=== PATIENT | female | born 1985 | race African-American/Black ===

== ENCOUNTER 2018-04-06 15:59 | Emergency (ER) | payer SELFPAY ==
[2018-04-06 16:06] VITALS: BP 144/79
[2018-04-06] MEDS ORDERED: DIPHENHYDRAMINE HCL 50 MG CAPSULE PO ONE (16:44)
[2018-04-06] MEDS ORDERED: FAMOTIDINE 20 MG TABLET PO ONE (16:44)
[2018-04-06] MEDS ORDERED: PREDNISONE 20 MG TABLET PO ONE (16:44)
--- NOTE | 2018-04-06 16:55 | ER Document Report ---
ED Allergic Reaction - General Chief Complaint: Allergic Reaction Stated Complaint: POSSIBLE ALLERIC REACTION Time Seen by Provider: 04/06/18 16:32 Mode of Arrival: Ambulatory Information source: Patient Notes: 32-year-old female presents to ED for complaint of allergic reaction to something on the seafood buffet she ate yesterday. She states she took some Benadryl last night and this morning but she still having some hives to the face. Patient alert and oriented respirations regular and unlabored speaking in full sentences with mild hives to the face no acute distress. TRAVEL OUTSIDE OF THE [place] IN LAST 30 DAYS: No - HPI Onset: Yesterday Onset/Duration: Persistent Quality of pain: Other - Swelling and hives to face Severity: Mild Pain Level: 2 Identified cause: Yes - She states she ate at the [employer] bar yesterday and she knows she is allergic to cramps Food exposure: Shellfish Skin rash / itching: Facial, "Redness", "Hives" Swelling: Face Similar symptoms previously: Yes Recently seen / treated by doctor: No - Related Data Allergies/Adverse Reactions: tuberculin,PPD,multi-puncture Allergy (Verified 04/06/18 16:06) Past Medical History - General Information source: Patient - Social History Smoking Status: Never Smoker Frequency of alcohol use: Heavy Drug Abuse: None Occupation: [employer] Lives with: Spouse/Significant other Family History: Reviewed & Not Pertinent Patient has suicidal ideation: No Patient has homicidal ideation: No Pulmonary Medical History: Reports: Hx Bronchitis GI Medical History: Reports: Hx Gastroesophageal Reflux Disease Psychiatric Medical History: Reports: Hx Anxiety, Hx Depression Past Surgical History: Reports: Hx Adenoidectomy, Hx Oral Surgery - [place] teeth , Hx Tonsillectomy Review of Systems - Review of Systems Skin: Other - Swelling and hives to the face no swelling to the lips tongue or oral mucosa. No airway obstruction Physical Exam - Vital signs Vitals: Temp Pulse Resp BP Pulse Ox 99.1 F 83 16 144/79 H 96 04/06/18 16:05 04/06/18 16:05 04/06/18 16:05 04/06/18 16:05 04/06/18 16:05 Interpretation: Normal - General General appearance: Appears well, Alert - HEENT Head: Normocephalic, Atraumatic, Other - Redness and hives to the face Eyes: Normal Pupils: PERRL Ears: Normal External canal: Normal Tympanic membrane: Normal Sinus: Normal Nasal: Normal Mouth/Lips: Normal. No: Angioedema Mucous membranes: Normal, Other - No swelling to the lips or tongue Pharynx: Normal. No: Potential airway comprom. Neck: Normal - Respiratory Respiratory status: No respiratory distress Chest status: Nontender Breath sounds: Normal Chest palpation: Normal - Cardiovascular Rhythm: Regular Heart sounds: Normal auscultation Murmur: No - Abdominal Inspection: Normal Distension: No distension Bowel sounds: Normal Tenderness: Nontender Organomegaly: No organomegaly - Back Back: Normal, Nontender - Extremities General upper extremity: Normal inspection, Nontender, Normal color, Normal ROM , Normal temperature General lower extremity: Normal inspection, Nontender, Normal color, Normal ROM , Normal temperature, Normal weight bearing. No: Porsche's sign - Neurological Neuro grossly intact: Yes Cognition: Normal Orientation: AAOx4 Anuja Coma Scale Eye Opening: Spontaneous Odell Coma Scale Verbal: Oriented Odell Coma Scale Motor: Obeys Commands Anuja Coma Scale Total: 15 Speech: Normal Motor strength normal: LUE, RUE, LLE, RLE Sensory: Normal - Psychological Associated symptoms: Normal affect, Normal mood - Skin Skin Temperature: Warm Skin Moisture: Dry Skin Color: Normal Course - Re-evaluation Re-evalutation: 04/06/18 22:36 Patient treated with Pepcid Benadryl and prednisone and instructed to follow-up with her primary doctor and get allergy testing to find what she is allergic to besides the milligrams. She states she ate a seafood buffet yesterday. Patient instructed on the importance of not eating seafood buffet days when she is allergic to crabs. - Vital Signs Vital signs: Temp Pulse Resp BP Pulse Ox 99.1 F 83 16 144/79 H 96 04/06/18 16:05 04/06/18 16:05 04/06/18 16:05 04/06/18 16:05 04/06/18 16:05 Discharge - Discharge Clinical Impression: Allergic reaction Qualifiers: Encounter type: initial encounter Qualified Code(s): T78.40XA - Allergy, unspecified, initial encounter Condition: Stable Disposition: HOME, SELF-CARE Instructions: Family Physicians / Practices Additional Instructions: ACUTE ALLERGIC REACTION: Your symptoms are due to an allergic reaction. Allergy can cause hives, swelling of the hands, feet, and face, hoarseness, and difficulty swallowing or breathing. It may be due to exposure to medication, animal dander, foods, infection, or insect bites. Medication is a common cause, even when prior use of this same medication caused no problems. Acute treatment may include adrenalin and antihistamines. Usually, the specific allergic agent can't be identified unless repeated episodes occur. Home treatment includes the following: (1) Stop any suspicious medications. This will be discussed with you. (2) Oral antihistamines for the next four to five days. Example, diphenhydramine (Benadryl) every four hours. (3) You may also use cimetidine (Tagamet), ranitidine (Zantac), or famotidine ( Pepcid) every four hours if diphenhydramine is not controlling itching and hives. (4) Avoid aspirin until the hives completely disappear. (5) Avoid hot baths or showers until the hives are completely gone. Call the doctor if faintness, difficulty swallowing, tightness in the chest , or wheezing occurs. STEROID MEDICATION: You have been given a medicine of the cortisone/steroid class. This medication is used to control inflammation or allergy. It is usually only given for a short period of time, until the acute process subsides. There are usually no side effects from short-term use of cortisone-like medications. Some persons feel an increased sense of well-being and are not sleepy at bedtime. Long-term use of cortisone medications is best avoided, unless required for a severe condition. If your condition does not remit, or relapses after the course of corticosteroid medication, you should consult your physician. ACID-SUPPRESSING MEDICATION: You have a prescription for medicine which reduces the stomach's secretion of acid. Examples include Zantac, Tagament, and Pepcid. These drugs are often used to allow healing of ulcers or esophagitis. They may be needed to prevent recurrence of ulcers in some patients, or to prevent damage from acid reflux in the esophagus. Take all medication as prescribed, even after the pain is gone. Regular antacids may be added as needed if you have symptoms while taking this medicine. These medications sometimes are prescribed for allergic reactions because they have anti-histaminic effects and relieve the rash and itching of the reaction. There are usually no side effects from this medication. But, in rare cases and particularly in the elderly, serious problems can occur. Contact your doctor if there is fever, rash, hallucinations, confusion, or unusual bruising. Contact your doctor at once if you develop lightheadedness, black or bloody stool, or bloody vomitus. ANTIHISTAMINES: An antihistamine has been given and/or prescribed to control your symptoms. Antihistamines are used for many reasons, including itching, watering eyes, runny nose, allergic swelling, hives, and insect stings. Antihistamines may cause drowsiness, especially with the first dose. Do not operate machinery or drive while under the effects of the medication. Other common side effects include dry mouth and eyes. In older persons, antihistamines can occasionally cause urinary retention, constipation, and trouble focusing the eyes. Do not combine the medication with alcohol, or with any other medication without talking to your doctor. USE OF DIPHENHYDRAMINE: The use of diphenhydramine (Benadryl) has been recommended to control allergic symptoms. The 25 mg strength is available over- the-counter, as well as the elixir. This antihistamine is used for many symptoms. It's useful for itching, watering eyes and nose, allergic swelling, hives, and insect stings. The medication can be repeated four times daily. Age Elixir (12.5 mg/tsp) 25 mg pill 2-3 yr 1/2 tsp 4-8 yr 1 tsp 9-14 yr 2 tsp one tab adult 1-2 tabs Antihistamines may cause drowsiness, especially with the first dose. Do not operate machinery or drive while under the effects of the medication. Do not combine the medication with alcohol, or with any other medication without talking to your doctor. FOLLOW-UP CARE: If you have been referred to a physician for follow-up care, call the physician s office for an appointment as you were instructed or within the next two days. If you experience worsening or a significant change in your symptoms, notify the physician immediately or return to the Emergency Department at any time for re-evaluation. Prescriptions: Famotidine [Pepcid 20 mg Tablet] 20 mg PO BID #12 tablet Prednisone [Deltasone 20 mg Tablet] 3 tab PO DAILY 5 Days tablet Forms: Elevated Blood Pressure
== END 2018-04-06 17:05 | disposition home or self-care (01) ==
LOC: ER 15:59
DX: T78.40XA Allergy, unspecified, initial encounter (principal); L50.9 Urticaria, unspecified
CPT/HCPCS: 99283; J7512

== ENCOUNTER 2018-09-28 00:22 | Emergency (ER) | payer SELFPAY ==
[2018-09-28] MEDS ORDERED: SUCRALFATE 1 GM TABLET PO ONE (01:12)
[2018-09-28] MEDS ORDERED: HYDROCODONE/ACETAMINOPHEN 5-325 MG TABLET PO ONE (01:12)
[2018-09-28] MEDS ORDERED: PROMETHAZINE HCL 25 MG TABLET PO ONE (01:12)
[2018-09-28] MEDS ORDERED: FAMOTIDINE 20 MG TABLET PO ONE ×2 (01:12→04:00)
--- NOTE | 2018-09-28 01:14 | ER Document Report ---
ED GI/ - General Chief Complaint: Upper Abdominal Pain Stated Complaint: ABDOMINAL PAIN Time Seen by Provider: 09/28/18 01:05 Notes: Patient is a 32-year-old female that comes to the emergency department for chief complaint of left upper quadrant pain (she points). She states that symptoms started about 2-1/2 days ago when she took a BC powder for lower abdominal cramping. She has a history of fibroids and intermittently needs medication for the cramping. She denies vomiting blood but she states she did throw up yesterday. She denies black stools, she denies any other locations of pain. She has been able to eat but the pain is not resolved. She denies fever. Remaining medical history includes anemia secondary to heavy vaginal bleeding, she takes no daily medications, she denies any surgeries, she denies alcohol, smoking, recreational drugs. TRAVEL OUTSIDE OF THE [place] IN LAST 30 DAYS: No - Related Data Allergies/Adverse Reactions: tuberculin,PPD,multi-puncture Allergy (Verified 04/06/18 16:06) Past Medical History - General Information source: Patient - Social History Smoking Status: Never Smoker Frequency of alcohol use: None Drug Abuse: None Lives with: Family Family History: Reviewed & Not Pertinent Pulmonary Medical History: Reports: Hx Bronchitis Renal/ Medical History: Reports: Other - Uterine fibroids. Denies: Hx Peritoneal Dialysis GI Medical History: Reports: Hx Gastroesophageal Reflux Disease Psychiatric Medical History: Reports: Hx Anxiety, Hx Depression Past Surgical History: Reports: Hx Adenoidectomy, Hx Oral Surgery - [place] teeth , Hx Tonsillectomy Review of Systems - Review of Systems Constitutional: No symptoms reported EENT: No symptoms reported Cardiovascular: No symptoms reported Respiratory: No symptoms reported Gastrointestinal: See HPI Genitourinary: No symptoms reported Female Genitourinary: See HPI Musculoskeletal: No symptoms reported Skin: No symptoms reported Hematologic/Lymphatic: No symptoms reported Neurological/Psychological: No symptoms reported Physical Exam - Vital signs Vitals: Temp Pulse Resp BP Pulse Ox 98.4 F 88 15 147/78 H 98 09/28/18 00:38 09/28/18 00:38 09/28/18 00:38 09/28/18 00:38 09/28/18 00:38 - Notes Notes: GENERAL: Alert, interacts well. No acute distress. HEAD: Normocephalic, atraumatic. EYES: Pupils equal, round, and reactive to light. Extraocular movements intact. ENT: Oral mucosa moist, tongue midline. Oropharynx unremarkable. Airway patent. Nares patent, no nasal septal hematoma, TM's intact. NECK: Full range of motion. Supple. Trachea midline. LUNGS: Clear to auscultation bilaterally, no wheezes, rales, or rhonchi. No respiratory distress. HEART: Regular rate and rhythm. No murmur ABDOMEN: Tender in the left upper quadrant and minimally in the epigastric area , remaining abdomen is benign. Non-distended. Bowel sounds present in all 4 quadrants. GENITOURINARY: Deferred EXTREMITIES: Moves all 4 extremities spontaneously. No edema, normal radial and dorsalis pedis pulses bilaterally. No cyanosis. BACK: no cervical, thoracic, lumbar midline tenderness. No saddle anesthesia, normal distal neurovascular exam. NEUROLOGICAL: Alert and oriented x3. Normal speech. [cranial nerves II through XII grossly intact]. PSYCH: Normal affect, normal mood. SKIN: Warm, dry, normal turgor. No rashes or lesions noted. Course - Re-evaluation Re-evalutation: On presentation patient is well-appearing but she does have left upper quadrant pain. Her history of present illness is very suggestive of gastritis component. CBC does not show leukocytosis but does show microcytic anemia along with patient's persistent bleeding fibroids. Chemistry unremarkable, lipase unremarkable, hCG is negative. Patient has no lower abdominal pain, no fever. She did vomit once after arrival. There was no hematemesis. Patient got up and went to the bathroom, she demonstrated to me that she is bleeding slightly but she does not have heavy bleeding, dizziness, dyspnea on exertion, she has not passed out. Patient given p.o. medications for gastritis, initially patient still had symptoms but then these resolved. She is tolerating p.o. without difficulty. Patient was transfused 1 unit of packed red blood cells. Because patient states she has several weeks before her follow-up with [facility], she has persistent bleeding fibroids, and she already has anemia requiring transfusion, I did speak with Dr. Obrien ([facility] on-call). She recommends patient have close follow-up on Saturday or Saturday in the office, she states she is referring this to the daytime [facility] to make sure this is confirmed. Patient informed that she should call on Saturday to set this up and confirmed. Patient states satisfaction and agreement with this plan. - Vital Signs Vital signs: Temp Pulse Resp BP Pulse Ox 97.5 F 82 16 116/86 H 100 09/28/18 05:46 09/28/18 05:46 09/28/18 06:32 09/28/18 06:32 09/28/18 06:32 - Laboratory Result Diagrams: 09/28/18 01:25 09/28/18 01:25 Laboratory results interpreted by me: 09/28/18 09/28/18 01:25 02:27 RBC 3.01 L Hgb 7.5 L Hct 23.4 L MCV 78 L MCH 24.9 L MCHC 31.9 L RDW 16.3 H Plt Count 540 H Crossmatch See Detail Discharge - Discharge Clinical Impression: Anemia requiring transfusions, Upper abdominal pain, Dysfunctional uterine bleeding Condition: Stable Disposition: HOME, SELF-CARE Additional Instructions: You have been treated for the anemia from the bleeding with the fibroids. I spoke with Dr. Obrien, [facility], recommendation is to follow-up on either Saturday or Saturday in the office, please call the listed number on Saturday to establish this close follow-up. Your evaluation also indicates inflammation of the upper gastrointestinal tract , take Zofran for nausea, Carafate and famotidine to help fix the symptoms, avoid NSAIDs, alcohol, smoking, caffeine, or spicy foods. Start with clear fluids and progress to bland diet. Return to normal as tolerated. Return immediately if you worsen including passing out, vomiting blood, black stools, severe abdominal pain, or any other concerning or worsening symptoms. Prescriptions: Famotidine [Pepcid 20 mg Tablet] 20 mg PO BID #14 tablet Ondansetron [Zofran Odt 4 mg Tablet] 1 - 2 tab PO Q4H PRN #15 tab.rapdis PRN Reason: For Nausea/Vomiting Sucralfate [Carafate 1 gm Tablet] 1 gm PO QID #20 tablet Referrals: [facility] [Provider Group] - 09/29/18
[2018-09-28 01:43] LABS: ABSOLUTE EOSINOPHILS # (AUTO) 0.1 10^3/uL (0.0-0.6); ABSOLUTE LYMPHOCYTES (AUTO) 3.4 10^3/uL (0.5-4.7); ABSOLUTE MONOCYTES (AUTO) 0.7 10^3/uL (0.1-1.4); BASOPHILS % (AUTO) 0.3 % (0-2); EOSINOPHILS % (AUTO) 1.7 % (0-6); HEMATOCRIT 23.4 % (36.0-47.0); LYMPHOCYTES % (AUTO) 40.5 % (13-45); MEAN CORPUSCULAR HEMOGLOBIN 24.9 pg (27.0-33.4); MEAN CORPUSCULAR HGB CONC 31.9 g/dL (32.0-36.0); MEAN CORPUSCULAR VOLUME 78 fl (80-97); PLATELET COUNT 540 10^3/uL (150-450); RED BLOOD COUNT 3.01 10^6/uL (3.72-5.28); RED CELL DISTRIBUTION WIDTH 16.3 % (11.5-14.0); SEGMENTED NEUTROPHILS % (AUTO) 48.5 % (42-78); TOTAL CELLS COUNTED % (AUTO) 100 %; WHITE BLOOD COUNT 8.3 10^3/uL (4.0-10.5)
[2018-09-28 01:46] LABS: HEMOGLOBIN 7.5 g/dL (12.0-15.5)
[2018-09-28 01:51] LABS: ALANINE AMINOTRANSFERASE 13 U/L (9-52); ALBUMIN 3.6 g/dL (3.5-5.0); ALKALINE PHOSPHATASE 50 U/L (38-126); ANION GAP 6 (5-19); ASPARTATE AMINO TRANSFERASE 18 U/L (14-36); BILIRUBIN,DIRECT 0.2 mg/dL (0.0-0.4); BILIRUBIN,TOTAL 0.2 mg/dL (0.2-1.3); BLOOD UREA NITROGEN 12 mg/dL (7-20); CALCIUM 8.8 mg/dL (8.4-10.2); CARBON DIOXIDE 28 mmol/L (22-30); CHLORIDE 106 mmol/L (98-107); GLUCOSE 99 mg/dL (75-110); LIPASE 74.8 U/L (23-300); POTASSIUM 4.2 mmol/L (3.6-5.0); SODIUM 140.4 mmol/L (137-145)
[2018-09-28] MEDS ORDERED: NORMAL SALINE 250 ML IV PRN ×2 (01:58)
[2018-09-28] MEDS ORDERED: ONDANSETRON 4 MG TAB.RAPDIS PO ONE (04:00)
[2018-09-28] MEDS ORDERED: OXYCODONE-ACETAMINOPHEN 5-325 MG TABLET PO ONE (04:00)
[2018-09-28 06:41] VITALS: BP 116/86
== END 2018-09-28 06:35 | disposition home or self-care (01) ==
LOC: ER 00:22
DX: D25.9 Leiomyoma of uterus, unspecified (principal); N93.8 Other specified abnormal uterine and vaginal bleeding; D50.0 Iron deficiency anemia secondary to blood loss (chronic); R10.12 Left upper quadrant pain; R11.10 Vomiting, unspecified; Z88.7 Allergy status to serum and vaccine
CPT/HCPCS: 99284; 86900; 86901; 36415; 36430; 86850; 83690; 84703; 85025; 80053; 86920; P9016; S0119; J7050